=== PATIENT | male | born 2000 | race Caucasian/White ===

== ENCOUNTER 2022-02-17 11:57 | Emergency (ER) | payer OTHER, SELFPAY ==
[2022-02-17 11:59] VITALS: BP 130/70; PULSE 94; RESP 16; TEMP 36.6; O2SAT 98; BMI 25.3
--- NOTE | 2022-02-17 12:28 | VDLE_ITS ---
Reason For Study: swelling Procedure LEFT This is a venous duplex using B-mode, color CFV is compressible, spontaneous, competent, flow and spectral Doppler. and demonstrates pulsatile venous flow. Exam performed portable in ED. FV is compressible, spontaneous, competent The exam was abbreviated due to the COVID 19 and demonstrates pulsatile venous flow. protocol. POP V is compressible with pulsatile The exam was diagnostic. turbulent flow noted. A preliminary report was called and/or faxed PTV and Peroneal V are dilated and to Dr. Talbot. noncompressible Possible A-V Fistula noted from from the POP Artery to the T/P Trunk vein. Turbulent flow is noted. T/P Trunk is compressible. GSV is normal. VL/Venous Duplex US, Unilateral Interpretation Summary Visibly abnormal left popliteal artery connection to the left tibioperoneal isiah ous trunk with what appears to be potential elevation of the venous intima and a arteriovenous fist carmen with partial venous flow or occlusion. Pulsatile flow is noted within the left popliteal and femoral and common femoral veins consistent with a diagnosis of arteriovenous fistula Acute deep venous thrombosis left posterior tibial and peroneal veins. Patent and compressible left great saphenous vein. Abbreviated COVID-19 protocol utilized This finding was discussed with Ordering Physician: Mark Talbot Performed By: Philipp Powell RVT
--- NOTE | 2022-02-17 12:29 | ED.VIS.LOWEX ---
HPI History of Present Illness Chief Complaint: Edema Detail of Chief Complaint: Left leg pain and swelling Narrative Narrative: Patient presents to the emergency department complaint of pain and swelling in his left lower extremity. Patient tells me that he had surgery on February [address] Allen at [facility] to repair his ACL and meniscus in his left knee. Patient noticed 3 to 4 days ago increased welling to his left calf. There is concerned about DVT. Patient denies any chest pain or shortness of breath. He denies new trauma to the leg. No prior history of PE or DVT. PFSH PFSH Home Medications multivitamin,[id number] 27 mg-0.4 mg tablet (Therems-M) 1 tab PO DAILY 07/19/13 [History Last Taken Unknown] Allergy/AdvReac Type Severity Reaction Status Date / Time amoxicillin [Amoxicillin] Allergy Rash Verified 02/17/22 11:58 Social History Smoking Status: Never smoker ROS ROS ED Review of Systems ROS Unobtainable: other Constitutional Constitutional ED: Reports lethargy; Denies chills, fever(s), sweats or weight loss Eyes Eyes: Denies blurry vision, change in vision or diplopia ENT ENT ED: Denies rhinorrhea or sore throat Cardiovascular Cardiovascular: Reports chest pain and racing heartbeat; Denies orthopnea Respiratory/Chest Respiratory/Chest: Reports dyspnea and dyspnea on exertion; Denies cough, orthopnea or sputum Gastrointestinal Gastrointestinal: Denies abdominal pain, diarrhea, nausea or vomiting Genitourinary Genitourinary ED: Denies dysuria, hematuria or urinary frequency Musculoskeletal Musculoskeletal: Reports other Details: Left leg pain and swelling ; Denies arthralgias, back pain, myalgias or neck pain Integumentary Denies abscess, Abrasions or rash Neurologic Neurologic: Denies headache(s) or weakness Psychiatric Psychiatric: Denies anxiety, depression or suicidal thoughts Endocrine Endocrinology: Denies polydipsia, polyphagia or polyuria Hematologic/Lymphatic Hematologic/Lymphatic: Denies easy bleeding, easy bruising or lymphadenopathy Allergic/Immunologic Allergic/Immunologic ED: Denies mouth swelling, tongue swelling or urticaria EXAM Physical Exam Const Vital Signs: 02/17/22 11:59 02/17/22 12:07 02/17/22 14:37 Temperature 97.8 F 98.8 F Temperature Source Temporal Temporal Pulse Rate 94 85 Respiratory Rate 16 16 Respiratory Effort Normal Non-Labored Respiratory Pattern Normal Blood Pressure 130/70 H 132/79 H Blood Pressure Mean 90 96 Pulse Ox 98 97 Oxygen Delivery Method Room Air Positive well nourished and well developed General Appearance ED: well developed and NAD HEENT Reports TM's clear and moist mucous membranes normocephalic and atraumatic; Negative for trauma or tenderness Tympanic Membrane ED: Yes TM's clear Eyes PERRL and EOMs intact bilaterally General Eye ED: Negative for pale conjunctiva or scleral icterus Neck no lymphadenopathy, supple and no JVD General: Negative for tenderness Chest Wall inspection of chest normal and palpation of chest normal Chest: Negative for tenderness Resp normal respiratory effort and clear to auscultation bilaterally Effort and Inspection: Negative for respiratory distress or pain with movement Auscultation: Negative for rhonchi, wheezes or diminished lung sounds Cardio regular rate, regular rhythm, S1 normal heart sound, S2 normal heart sound and no murmurs Peripheral Pulses: pulses 2+ throughout GI normal to inspection, nondistended, normoactive bowel sounds, soft to palpation, non-tender, non-distended and no masses Back/Spine no CVA tenderness and no thoracic nor lumbar tenderness Extremity Extremity Narrative: Patient does have surgical wounds that are healing well without any evidence of cellulitis or drainage from the wounds. Patient does have edema of the left calf which is asymmetric compared to the right. He has old ecchymosis and bruising noted consistent with recent surgery. Normal pulses distally. Positive Homans' sign on the left. No ropes or cords palpated. General Extremety ED: Yes edema General Extremity: edema Neuro oriented x3, CN's II-XII intact bilaterally, no sensory deficits noted and gait normal Sensorium / Orientation: awake, alert, oriented to person, oriented to place and oriented to time Motor Exam: strength 5/5 throughout and strength abnormal Psych mental status grossly normal Skin no rashes or lesions noted and no wounds MDM MDM MDM Narrative Medical decision making narrative: Patient had a venous Doppler of the left lower extremity which did show DVT but also showed concern for popliteal artery injury with possible AV fistula to the TP trunk. I discussed case with patient's orthopedic surgeon. It was recommended we transfer patient for vascular surgery evaluation. We attempted to contact [facility] as well as [facility] and neither facility had bed availability. I discussed case with [facility] in [place] and they asked that we transfer patient to their emergency department. I discussed case with their vascular surgeon who accepted transfer of patient. I did order a CBC and chemistries results which are pending. Family wants to drive patient to [facility] as ambulance transfer will take over 4 hours as there are no local ambulance is available at this time. I feel this is certainly reasonable as he is neurovascularly intact and has had this swelling and discomfort for over 4 days. I advised patient not to eat or drink and go directly to the emergency department. Lab Data Attestation: I reviewed the patient's lab results. Discharge Plan Triage Chief Complaint: Edema ED Provider: Mark Talbot Dx/Rx/DC Orders Clinical Impression: DVT (deep venous thrombosis), A-V fistula Prescriptions: No Action multivitamin,[id number] [Therems-M] 1 TABLET tablet 1 tab PO DAILY Primary Care Provider: Pablito Youngblood Referrals: Pablito Youngblood MD [Primary Care Provider] - Disposition Disposition: DC/Tx to Another Type of HCF
[2022-02-17 14:37] VITALS: BP 132/79; PULSE 85; RESP 16; TEMP 37.1; O2SAT 97
[2022-02-17 15:53] LABS: Absolute Lymphocyte Count 1.95 X10^3/uL (0.83-4.51); Absolute Neutrophil Count 7.1 X10^3/uL (2.0-7.7); Basophil# 0.04 X10^3/uL; Basophil% 0.4 % (0-1); Eosinophil# 0.08 X10^3/uL; Eosinophils% 0.8 % (0-5); Hematocrit 40.1 % (40-54); Lymphocyte # 1.95 X10^3/ul (0.83-4.51); Lymphocyte % 19.2 % (19-41); Mean Corp Hgb Conc 34.9 g/dL (32-36); Mean Corpuscular Hgb 29.2 pg (27.0-32.0); Mean Corpuscular Volume 83.7 fL (80-94); Mean Platelet Vol. 9.7 fl (6.2-12.0); Monocyte# 0.97 X10^3/uL; Monocyte% 9.5 % (0-10); NRBC Flagged by Analyzer 0 % (0-5); Neutrophil # 7.09 X10^3/uL (2.7-7.7); Neutrophil % 69.8 % (47-70); Platelet Count 335 K/mm3 (150-450); RBC Distribution Width CV 11.5 % (11.6-14.6); RBC Distribution Width SD 35.1 fl (35.1-43.9); Red Blood Count 4.79 M/mm3 (4.6-6.2); White Blood Count 10.2 K/mm3 (4.4-11.0)
[2022-02-17 16:10] LABS: Anion Gap 7 (5-15); BUN 19 mg/dL (7-18); BUN/Creat Ratio 20.9 RATIO (10-20); Chloride 104 mmol/L (98-107); Creatinine, Serum 0.91 mg/dL (0.70-1.30); EST Glomerular Filtration Rate 114 mL/min (>60); Est Glom Filt Rate - Afr Amer 138 mL/min (>60); Estimated Creatinine Clearance 156.05 ml/min; Glucose 86 mg/dL (74-106); Potassium 4.1 mmol/L (3.5-5.1); Sodium Level 137 mmol/L (136-145)
[2022-02-17 17:19] VITALS: BP 148/85; PULSE 97; RESP 16; TEMP 37.1; O2SAT 99
== END 2022-02-17 17:28 | disposition short-term general hospital (02) ==
PROVIDERS: Emergency Provider Emergency Medicine; PCP Family Medicine; Visit Provider Emergency Medicine
DX: I82.442 Acute embolism and thrombosis of left tibial vein (principal); I82.452 Acute embolism and thrombosis of left peroneal vein; I77.0 Arteriovenous fistula, acquired
CPT/HCPCS: 36415; 80048; 85025; 93971; 99284

== ENCOUNTER → 2024-05-27 | Outpatient (CLI) | payer SELFPAY ==
[2024-05-27 10:33] LABS: Absolute Lymphocyte Count 2.37 X10^3/uL (0.83-4.51); Absolute Neutrophil Count 3.5 X10^3/uL (2.0-7.7); Basophil# 0.05 X10^3/uL; Basophil% 0.7 % (0-1); Eosinophil# 0.13 X10^3/uL; Eosinophils% 1.9 % (0-5); Hematocrit 43.5 % (40-54); Hemoglobin 14.8 g/dL (13.0-16.5); Lymphocyte # 2.37 X10^3/ul (0.83-4.51); Lymphocyte % 35.5 % (19-41); Mean Corpuscular Hgb 29.3 pg (27.0-32.0); Mean Corpuscular Volume 86.1 fL (80-94); Mean Platelet Vol. 10.8 fl (6.2-12.0); Monocyte# 0.62 X10^3/uL; Monocyte% 9.3 % (0-10); NRBC Flagged by Analyzer 0 % (0-5); Neutrophil # 3.48 X10^3/uL (2.7-7.7); Neutrophil % 52.3 % (47-70); Platelet Count 244 K/mm3 (150-450); RBC Distribution Width CV 12.3 % (11.6-14.6); RBC Distribution Width SD 38.5 fl (35.1-43.9); Red Blood Count 5.05 M/mm3 (4.6-6.2); White Blood Count 6.7 K/mm3 (4.4-11.0)
[2024-05-27 11:14] LABS: ALB/GLOB Ratio 1.2 RATIO (0.9-2.4); AST(SGOT) 28 U/L (15-37); Alanine Aminotransfer ALT/SGPT 43 U/L (16-61); Albumin, Serum 4.1 g/dL (3.2-5.0); Alkaline Phosphatase 68 U/L (45-117); Anion Gap 5 (5-15); BUN 16 mg/dL (7-18); BUN/Creat Ratio 14.3 RATIO (10-20); CRP < 2.90 mg/L (0.0-3.0); Calcium,Total 9.3 mg/dL (8.5-10.1); Chloride 106 mmol/L (98-107); Cholesterol 118 mg/dL (200); Creatinine, Serum 1.12 mg/dL (0.70-1.30); EST Glomerular Filtration Rate 87 mL/min (>60); Est Glom Filt Rate - Afr Amer 106 mL/min (>60); Globulin 3.3 g/dL (2.2-4.2); Glucose 95 mg/dL (74-106); High Density Lipoprotein 41 mg/dL; Potassium 4.3 mmol/L (3.5-5.1); Protein, Total 7.4 g/dL (6.4-8.2); Sodium Level 137 mmol/L (136-145); Triglycerides 61 mg/dL; Very Low Density Lipoprotein 12 mg/dL (5-40)
== END | disposition home or self-care (01) ==
LOC: MFPLAB 09:00
PROVIDERS: PCP Family Medicine; Visit Provider Family Medicine
DX: Z13.220 Encounter for screening for lipoid disorders (principal); R59.0 Localized enlarged lymph nodes
CPT/HCPCS: 36415; 80053; 80061; 85025; 86140